=== PATIENT | female | born 1975 | race Caucasian/White ===

== ENCOUNTER 2017-12-18 18:59 | Emergency (ER) | payer OTHER ==
[2017-12-19 05:26] LABS: ANION GAP 11 (8-16); BLOOD UREA NITROGEN 12 mg/dl (7-20); CALCIUM 9.5 mg/dl (8.4-10.2); CARBON DIOXIDE 30 mmol/L (21-31); CHLORIDE 105 mmol/L (97-110); CREATININE 0.91 mg/dl (0.44-1.00); GLUCOSE 109 mg/dl (70-220); MAGNESIUM 1.9 mg/dl (1.7-2.5); POTASSIUM 3.9 mmol/L (3.5-5.1); SODIUM 142 mmol/L (135-144)
== END 2017-12-19 06:00 | disposition home or self-care (01) ==
LOC: E/R 18:59
DX: R20.2 Paresthesia of skin (principal); R40.2142 Coma scale, eyes open, spontaneous, at arrival to emergency department; R40.2362 Coma scale, best motor response, obeys commands, at arrival to emergency department; R40.2252 Coma scale, best verbal response, oriented, at arrival to emergency department
CPT/HCPCS: 36415; 70450; 72125; 80048; 83735; 99285-25

== ENCOUNTER 2018-08-09 11:57 | Emergency (ER) | payer OTHER ==
[2018-08-09] MEDS: ACETAMINOPHEN 500 MG TAB PO (13:05)
== END 2018-08-09 13:18 | disposition home or self-care (01) ==
LOC: FTE 11:57
DX: J06.9 Acute upper respiratory infection, unspecified (principal)
CPT/HCPCS: 99282; Z7502

== ENCOUNTER 2019-01-16 10:02 | Emergency (ER) | payer OTHER ==
[2019-01-16] MEDS: KETOROLAC 60 MG INJ IM (11:53)
[2019-01-16] MEDS: IBUPROFEN 600 MG TAB PO (12:16)
== END 2019-01-16 13:50 | disposition home or self-care (01) ==
LOC: FTE 10:02
DX: S99.912A Unspecified injury of left ankle, initial encounter (principal); S89.92XA Unspecified injury of left lower leg, initial encounter; S49.92XA Unspecified injury of left shoulder and upper arm, initial encounter; W11.XXXA Fall on and from ladder, initial encounter; Y92.009 Unspecified place in unspecified non-institutional (private) residence as the place of occurrence of the external cause
CPT/HCPCS: 29515; 73030-RT; 73562; 73610; 81025; 99284-25

== ENCOUNTER 2019-03-13 05:43 | Day surgery (SDC) | payer OTHER ==
[~2019-03-13 05:43] MED LIST: CEFAZOLIN 2 GM/50 ML (PMX) 50 ML IVPB
[2019-03-13] MEDS ORDERED: METOCLOPRAMIDE 10 MG INJ IV (07:30)
[2019-03-13] MEDS ORDERED: HYDROmorphONE 1 MG/5 ML IV SYRINGE IV (07:30)
[2019-03-13] MEDS ORDERED: ALBUTEROL 0.083% (NEB) 2.5 MG/3 ML AMP HHN (07:30)
[2019-03-13] MEDS ORDERED: DIPHENHYDRAMINE 50 MG INJ IV (07:30)
[2019-03-13] MEDS ORDERED: MEPERIDINE 25 MG INJ IV (07:30)
[2019-03-13] MEDS ORDERED: FENTAnyl 50 MCG/ML VIAL IV ×3 (07:30)
[2019-03-13] MEDS: LACTATED RINGER'S 1,000 ML IV (07:35)
[2019-03-13] MEDS: NEOMYC/POLYMYX/BACIT 30 GM OINT (07:36)
[2019-03-13] MEDS: POLYMYXIN/BACITRACIN 1L IRRIG (07:37)
[2019-03-13] MEDS ORDERED: FENTAnyl 50 MCG/ML VIAL ×2 (07:38→10:45)
[2019-03-13] MEDS ORDERED: MIDAZOLAM 1 MG/ML 2 ML INJ (07:38)
[2019-03-13] MEDS ORDERED: ROPIVACAINE 0.5 % 30 ML VIAL (07:39)
[2019-03-13] MEDS ORDERED: DEXAMETHASONE 4 MG/ML 5 ML INJ (08:36)
[2019-03-13] MEDS ORDERED: PROPOFOL 20 ML (10:44)
[2019-03-13] MEDS ORDERED: NEOSTIGMINE 3 MG/3 ML SYRINGE (10:44)
[2019-03-13] MEDS ORDERED: CEFAZOLIN 1 GM INJ (10:44)
[2019-03-13] MEDS ORDERED: SUCCINYLCHOLINE CHLORIDE 100 MG/5 ML SYG IV (10:44)
[2019-03-13] MEDS ORDERED: ROCURONIUM 50 MG INJ (10:44)
[2019-03-13] MEDS ORDERED: LIDOCAINE 100 MG SYRINGE (10:44)
[2019-03-13] MEDS ORDERED: GLYCOPYRROLATE 0.4 MG INJ (10:44)
[2019-03-13] MEDS: HYDROmorphONE 1 MG/5 ML IV SYRINGE IV ×2 (11:27→11:41)
[2019-03-13] MEDS: ONDANSETRON 4 MG INJ IV (11:27)
[2019-03-13] MEDS ORDERED: KETOROLAC 30 MG INJ IV (11:30)
[2019-03-13] MEDS ORDERED: morphine 2 MG INJ IV (11:30)
== END 2019-03-13 13:50 | disposition home or self-care (01) ==
LOC: SDS 05:43
DX: S92.142D Displaced dome fracture of left talus, subsequent encounter for fracture with routine healing (principal); S86.312D Strain of muscle(s) and tendon(s) of peroneal muscle group at lower leg level, left leg, subsequent encounter; M65.872 Other synovitis and tenosynovitis, left ankle and foot; X58.XXXD Exposure to other specified factors, subsequent encounter; I10 Essential (primary) hypertension; E11.9 Type 2 diabetes mellitus without complications
CPT/HCPCS: 28445; 73610; 73700; 82306